=== PATIENT | female | born 1975 | race Two or more races ===

== ENCOUNTER 2017-06-22 16:11 | Emergency (ER) | payer MEDICAID, OTHER ==
[~2017-06-22] VITALS: Ht 152.4 cm; Wt 66.2 kg
[2017-06-22 17:53] VITALS: BP 140/87
== END 2017-06-22 18:08 | disposition home or self-care (01) ==
LOC: ER 16:26
DX: S40.011A Contusion of right shoulder, initial encounter (principal); X58.XXXA Exposure to other specified factors, initial encounter; Y93.89 Activity, other specified; Y99.8 Other external cause status; Y92.89 Other specified places as the place of occurrence of the external cause
CPT/HCPCS: 73030